=== PATIENT | male | born 1990 | race Caucasian/White ===

== ENCOUNTER 2024-09-24 00:28 | Inpatient (IN) ==
[2024-09-24] MEDS: DEXAMETHASONE SOD INJ 4 MG/ML VIAL IV STA (01:16)
[2024-09-24] MEDS: HYDROmorphone INJ 1 MG/ML SYRINGE IV STA (01:17)
[2024-09-24] MEDS: KETOROLAC TROMETHAMINE 15 MG/ML VIAL IV ONE (01:17)
[2024-09-24 02:09] LABS: Basophils # (auto) 0.04 K/uL (0.00-0.20); Basophils % (auto) 0.7 %; Eosinophils # (auto) 0.15 K/uL (0.00-0.50); Eosinophils % (auto) 2.5 %; Hematocrit (blood only) 45.5 % (42.0-52.0); Hemoglobin 16.4 g/dl (14.0-18.0); Immature Granulocytes # (auto) 0.01 K/uL (0.01-0.20); Immature Granulocytes % (auto) 0.2 %; Lymphocytes # (auto) 0.86 K/uL (1.20-3.40); Lymphocytes % (auto) 14.4 %; Mean Corpuscular Volume 83.3 fL (80.0-100.0); Mean Platelet Volume 10.4 fL (9.4-12.4); Monocytes # (auto) 0.38 K/uL (0.11-0.59); Monocytes % (auto) 6.4 %; Neutrophils # (auto) 4.54 K/uL (1.40-6.50); Neutrophils % (auto) 75.8 %; Platelet Count 166 K/uL (130-400); RDW Coefficient of Variation 11.8 % (11.5-14.5); RDW Standard Deviation 35.4 fL (36.4-46.3); Red Blood Count 5.46 M/uL (4.70-6.10); White Blood Count 5.98 K/ul (4.8-10.8)
[2024-09-24 02:20] LABS: Appearance Urine Clear (Clear); Bilirubin Urine Negative (Negative); Blood Urine Negative (Negative); Color Urine Yellow; Glucose Urine UA Negative (Negative); Ketones Urine Negative (Negative); Leukocyte Esterase Urine Negative (Negative); Nitrite Urine Negative (Negative); Protein Urine Negative (Negative); Specific Gravity Urine 1.014 (1.000-1.030); Urobilinogen Urine Negative (Negative)
[2024-09-24 02:24] LABS: BUN Creatinine Ratio 14.3 (10-20); Calcium 8.9 mg/dl (8.6-10.3); Creatinine Clr Calc Pharmacy 144.3 ml/min; Potassium 4.2 mmol/L (3.5-5.1)
--- NOTE | 2024-09-24 02:54 | Emergency Department Note ---
Impression & Plan Back pain, Acute urinary retention ED Provider Note CHIEF COMPLAINT: Back pain HPI: Patient is a 34-year-old male presenting with complaint of back pain. Patient states his symptoms flared up worse over the past 24 hours time but have been slowly progressing over the last 1 to 2 weeks. Patient states he has had a history of microdiscectomy at [facility] by Dr. Renteira in 2019. Patient states he follows regularly with neurosurgery team and recently had a MRI performed at [address] in [place] showing L4-L5 disc protrusion. Patient scheduled next week for epidural steroid injection. Patient today having worsening pain that was not controlled by [id number] medications. Patient states he started to have urinary symptoms. Patient's pain is in the left lower back and radiates down his left leg. PAST MEDICAL HISTORY: See Below PAST SURGICAL HISTORY: See Below SOCIAL HISTORY: See Below HOME MEDICATIONS: See Below ALLERGIES: See Below VITALS: See Below PHYSICAL EXAMINATION: GENERAL: non-toxic. EYE EXAM: Normal conjunctiva. OROPHARYNX: Moist mucus membranes. Grossly normal dentition. NECK: Supple, LUNGS: Clear to auscultation. Normal chest wall mechanics. HEART: NSR ABDOMEN: Abdomen soft, non-tender, normo-active bowel sounds, no masses, no rebound or guarding BACK: Tenderness left lateral lower back region sciatic region. Patient intact sensation lower extremities bilaterally, patient has pain with lifting of his left leg in his lower back region but is able to hold his leg up off the stretcher. Patient has 2+ left dorsal pedis pulse. SKIN: No rashes and no bruising. UPPER EXTREMITIES: Upper extremities are grossly normal LOWER EXTREMITIES: Grossly normal, no edema. NEURO EXAM: A&O x3,, normal speech, moves all 4 extremities PSYCH: Cooperative MEDICAL DECISION MAKING: History obtained from: Patient ER Course: Patient is a 34-year-old male presenting with complaint of back pain. Patient has history of herniated disks on MRI 1 month prior. Patient states he has become more painful over the past month but in the past 24 hours time he had significant pain not controlled by [id number] medications. Patient states he called his medical providers who they called and anti-inflammatories tramadol and prednisone. Patient tried to take these today without relief in symptoms. Patient noticed that he was having trouble urinating. Patient denies any burning with urination. Patient denies any abdominal pain. Patient points to the left lower lateral back not midline for where his pain is located that radiates down his left leg. Patient has intact sensation in the left lower extremity and 2+ dorsal pedis pulse. Patient on postvoid residual originally was found to have over 700 cc. Patient again tried to urinate later on in ER course and put out 500 cc but still had 500 cc present on bladder scan. Patient was ordered a Kinsey catheter and now after the second attempt is willing to have it placed. Patient ordered a stat MRI to rule out cauda equina. Patient currently pending MRI report. Patient's case signed out due to the end of my shift. Labs (independently interpreted) are significant for: No electrolyte abnormalities Medications given: Toradol, Dilaudid, Decadron Chronic conditions affecting care: Disc herniation L4-L5 Triage Nursing notes reviewed and agree them. 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 H/O laminectomy History of ear surgery LEFT EAR PATCH (REPAIRED HOLE IN EAR) History of myringotomy X 2 History of tonsillectomy and adenoidectomy [place] teeth removed Family History Other No family history of adverse response to anesthesia No significant family history Social History Smoking Status: Never smoker Second Hand Exposure: No; Do You Dip or Chew Tobacco: No; Hx Alcohol Use: Yes Alcohol type: beer Preferred Language: Macanese Chief Diversity Officer Required: No Beliefs That Will Affect Care: None marital status: Current Living Situation: Spouse and Significant Other Feels Safe at Home: Yes Assistive Devices: None Allergies Allergies Allergy/AdvReac Type Severity Reaction Status Date / Time No Known Allergies Allergy Verified 12/05/22 10:43 Home Meds Home Medications Medication Instructions Recorded Confirmed bupropion HCl 150 mg tablet,12 hr 150 mg PO BID 11/08/22 12/05/22 sustained-release (Wellbutrin SR) apple cider vinegar 600 mg capsule 600 mg PO QAM 11/24/22 12/05/22 Results & Data (ED) Vital Signs Vital Signs - 24 hr 09/24/24 00:31 09/24/24 00:43 09/24/24 00:59 Temperature 36.5 C Temperature Source Temporal Artery Scan Pulse Rate 98 H 98 H Pulse Rate [Right Finger] 85 Respiratory Rate 22 12 Respiratory Effort / Characteristics Non-Labored Spontaneous Respiratory Depth Normal Blood Pressure 167/112 H Blood Pressure [Right Arm] 142/91 H Blood Pressure Mean 130 Blood Pressure Mean [Right Arm] 108 Pulse Oximetry 98 96 Oxygen Delivery Method Room Air Sepsis Recent Fever Within 48 Hours No Sepsis New/Unexplained Change in Mental Status N/A Sepsis Action Taken by Nursing No Action Required 09/24/24 02:30 Temperature Temperature Source Pulse Rate Pulse Rate [Right Finger] 76 Respiratory Rate 13 Respiratory Effort / Characteristics Respiratory Depth Blood Pressure Blood Pressure [Right Arm] Blood Pressure Mean Blood Pressure Mean [Right Arm] Pulse Oximetry 96 Oxygen Delivery Method Sepsis Recent Fever Within 48 Hours Sepsis New/Unexplained Change in Mental Status Sepsis Action Taken by Nursing Laboratory Data 09/24/24 01:54 09/24/24 01:54 Lab Results 09/24/24 09/24/24 Range/Units 01:08 01:54 WBC 5.98 (4.8-10.8) K/ul RBC 5.46 (4.70-6.10) M/uL Hgb 16.4 (14.0-18.0) g/dl Hct 45.5 (42.0-52.0) % MCV 83.3 (80.0-100.0) fL MCH 30.0 (25.0-34.0) pg MCHC 36.0 (32.0-36.0) g/dL RDW Std Deviation 35.4 L (36.4-46.3) fL RDW Coeff of Jesse 11.8 (11.5-14.5) % Plt Count 166 (130-400) K/uL MPV 10.4 (9.4-12.4) fL Immature Gran % (Auto) 0.2 % Neut % (Auto) 75.8 % Lymph % (Auto) 14.4 % Lander % (Auto) 6.4 % Eos % (Auto) 2.5 % Baso % (Auto) 0.7 % Neut # (Auto) 4.54 (1.40-6.50) K/uL Lymph # (Auto) 0.86 L (1.20-3.40) K/uL Lander # (Auto) 0.38 (0.11-0.59) K/uL Eos # (Auto) 0.15 (0.00-0.50) K/uL Baso # (Auto) 0.04 (0.00-0.20) K/uL Immature Gran # (Auto) 0.01 (0.01-0.20) K/uL Sodium 135 L (136-145) mmol/L Potassium 4.2 (3.5-5.1) mmol/L Chloride 106 (98-107) mmol/L Carbon Dioxide 23 (21-32) mmol/L Anion Gap 6 (3-11) BUN 14 (6-23) mg/dl Creatinine 0.98 (0.6-1.4) mg/dl Est Cr Clr Drug Dosing 144.3 ml/min eGFR 103.77 BUN/Creatinine Ratio 14.3 (10-20) Glucose 133 H (70-99(Fasting)) mg/dl Calcium 8.9 (8.6-10.3) mg/dl Urine Color Yellow Urine Appearance Clear (Clear) Urine pH 7.0 (4.5-7.5) Ur Specific C[place] 1.014 (1.000-1.030) Urine Protein Negative (Negative) Urine Glucose (UA) Negative (Negative) Urine Ketones Negative (Negative) Urine Blood Negative (Negative) Urine Nitrite Negative (Negative) Urine Bilirubin Negative (Negative) Urine Urobilinogen Negative (Negative) Ur Leukocyte Esterase Negative (Negative) Administered Medications Discontinued Medications Dexamethasone (Dexamethasone Sod Inj 4 Mg/Ml Vial) 8 mg IV NOW STA Stop: 09/24/24 00:59 Last Admin: 09/24/24 01:16 Dose: 8 mg Documented By: SHALOM Hydromorphone HCl (Hydromorphone Inj 1 Mg/Ml Syringe) 1 mg IV NOW STA Stop: 09/24/24 00:59 Last Admin: 09/24/24 01:17 Dose: 1 mg Documented By: RAULITOK Ketorolac Tromethamine (Ketorolac Tromethamine 15 Mg/Ml Vial) 10 mg IV NOW ONE Stop: 09/24/24 00:59 Last Admin: 09/24/24 01:17 Dose: 10 mg Documented By: RAULITOK Discharge Plan Visit Data Chief Complaint: Back Injury/Pain Stated Complaint: SOB, UNABLE TO URINATE, PAIN ED Provider: Radha Mcclelland Discharge Problem: Back pain, Acute urinary retention Forms Stand Alone Forms: [facility] Prescriptions Prescriptions: No Action bupropion HCl [Wellbutrin SR] 150 mg tablet sustained-release 12 hr 150 mg PO BID apple cider vinegar 600 mg Capsule 600 mg PO QAM Referrals Referrals: Bre Ospina MD [Primary Care Provider] -
--- NOTE | 2024-09-24 03:35 | Magnetic Resonance Report ---
EXAM: MR lumbar spine wo con CLINICAL HISTORY: Low back pain radiating down left leg. No recent injury. Previous microdiscectomy 4 years ago. TECHNIQUE: Different pulse sequences were performed in different planes for the lumbar spine without contrast. Images were sent through PACs for diagnostic interpretation. COMPARISON: None. FINDINGS: Preserved physiological lumbar lordosis. Lumbarization of S1 vertebral body. There is degenerative retrolisthesis at the L5-S1 level measuring 6.3 mm. L4-L5 and L5-S1 intervertebral discs are degenerated and are denoted by low signal intensity on T2 WI. Modic I and II marrow changes are seen, with no other remarkable marrow changes. Left fenestration laminotomy is seen opposite the L5-S1 intervertebral disc. Maintained vertebral heights with intact vertebral bodies and neural arches. Level by Level analysis: T12-L1: There is no focal disc pathology, spinal canal stenosis, or neural foraminal stenosis. L1-L2: There is no focal disc pathology, spinal canal stenosis, or neural foraminal stenosis. L2-L3: There is no focal disc pathology, spinal canal stenosis, or neural foraminal stenosis. L3-L4: There is no focal disc pathology, spinal canal stenosis, or neural foraminal stenosis. L4-L5: There is A 2.8 mm annular bulge and a 5.7 mm central and right central and subarticular herniation indenting the thecal ac, compromising the subarticular recesses more on the right side. There is Mild spinal canal stenosis with impingement of the emerging nerve roots. Buckled ligamenta flava and arthropathic facet joints augment effects. An underlying annular fissure is seen. L5-S1: 2.8 mm annular bulge and 21 x 14 x 11 mm Broad-based central and left central and subarticular extrusion with caudal migration indenting the thecal sac, compromising the subarticular recesses more on the left side. There is moderate spinal canal stenosis and mild bilateral neural foraminal stenosis with impingement of the emerging nerve roots. Low signal material is seen entrapping The left S1 nerve root, suggesting postoperative scar tissue. Degenerative retrolisthesis buckled right ligamentum flavum, and arthropathic facet joints augment effects. The lower dorsal spinal cord, conus medullaris, and cauda equina nerve roots are unremarkable. Paravertebral soft tissue is unremarkable. No developmental canal stenosis. IMPRESSION: 1. Lumbarization of S1 vertebral body. 2. There is degenerative retrolisthesis at the L5-S1 level measuring 6.3 mm. 3. L4-L5 and L5-S1 intervertebral discs are degenerated. 4. Modic I and II marrow changes. 5. Left fenestration laminotomy is seen opposite the L5-S1 intervertebral disc. 6. L4-L5: There is A 2.8 mm annular bulge and a 5.7 mm central and right central and subarticular herniation indenting the thecal ac, compromising the subarticular recesses more on the right side. There is Mild spinal canal stenosis with impingement of the emerging nerve roots. Buckled ligamenta flava and arthropathic facet joints augment effects. An underlying annular fissure is seen. 7. L5-S1: 2.8 mm annular bulge and 21 x 14 x 11 mm Broad-based central and left central and subarticular extrusion with caudal migration indenting the thecal sac, compromising the subarticular recesses more on the left side. There is moderate spinal canal stenosis and mild bilateral neural foraminal stenosis with impingement of the emerging nerve roots. Low signal material is seen entrapping The left S1 nerve root, suggesting postoperative scar tissue. Degenerative retrolisthesis buckled right ligamentum flavum, and arthropathic facet joints augment effects. Contrast-enhanced MRI study is recommended. 8. The reported findings explain the current clinical status. Electronically signed by Ruben Khanna 09-24-2024 03:35 AM
--- NOTE | 2024-09-24 04:14 | Emergency Department Note ---
ED Visit Note Patient signed out to me at change of shift from Dr. Coombs. Awaiting MRI of the lumbar spine. [id number]: Discussed the case with Dr. Floyd, neuro spine at [facility]. He states no indication for cauda equina or emergent intervention. Does not feel the patient needs urgently transferred and just needs further pain control. He states once discharged the patient can contact their office to see if sooner appointments are available for his scheduled cortisone injection. [id number]: Patient and family updated on discussion with [place] teacher specialist. 0452: D[facility] with [facility] Tyson[facility], for additional evaluation and management. .
[2024-09-24] MEDS: LIDOCAINE 5% 1 PATCH TD STA (04:36)
[2024-09-24] MEDS: ACETAMINOPHEN 1,000 MG/100 ML VIAL IV STA (04:38)
--- NOTE | 2024-09-24 05:32 | History & Physical Report ---
Date of Service September 24, 2024 Assessment & Plan (1) Acute urinary retention: (2) Back pain: (3) History of microdiscectomy: (4) H/O laminectomy: Plan The patient is a 34-year-old male with prior medical history that of chronic low back pain, and history of microdiscectomy surgery.The patient presents to the emergency department with history of significant back pain, having undergone microdiscectomy at [facility] by Dr. Renteria in 2019. He reports that over the past 3 to 4 weeks she has had a gradually increasing level of worsening pain, but in particular over the past 24 hours has worsened considerably to the point that he cannot move off of the bed in ED without severe pain. He reports that this episode of pain began while he was sitting at a desk working on a computer, developed severe sharp pain that radiated down his left leg, and while in the ED, started to have urinary retention symptoms, requiring placement of Kinsey catheter. He reports that he initially was able to urinate 500 cc, bladder scanning revealed about 1000 cc remaining. He did have a MRI performed at 611 in [place] which showed L4-5 disc protrusion. He has an epidural steroid injection scheduled next week at [facility]. Discussion with Dr. Renteria and ED physicians after repeating MRI this evening, revealed that there was no urgency for surgery for relief of potential cauda equina or other compressive syndrome. 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 at bedtime. He reports that gabapentin has made him dysfunctional in the past Narcan IV for oversedation/respiratory depression Lidoderm patch Patient reports gabapentin makes him feel spacey and cannot work Zofran 4 mg IV every 6 hours as needed Acetaminophen 650 mg p.o. every 6 hours as needed for mild pain or fever Consult orthopedic spine surgery. He has been seen by Dr. Ramos in the past #Acute urinary retention- Continue Kinsey catheter for now Consult urology SCD with heparin subcu History of Present Illness Chief Complaint: The patient presents to the emergency department with history of significant back pain, having undergone microdiscectomy at [facility] by Dr. Renetria in 2019. He reports that over the past 3 to 4 weeks she has had a gradually increasing level of worsening pain, but in particular over the past 24 hours has worsened considerably to the point that he cannot move off of the bed in ED without severe pain. He reports that this episode of pain began while he was sitting at a desk working on a computer, developed severe sharp pain that radiated down his left leg, and while in the ED, started to have urinary retention symptoms, requiring placement of Kinsey catheter. He reports that he initially was able to urinate 500 cc, bladder scanning revealed about 1000 cc remaining. He did have a MRI performed at 611 in [place] which showed L4-5 disc protrusion. He has an epidural steroid injection scheduled next week at [facility]. Discussion with Dr. Renteria and ED physicians after repeating MRI this evening, revealed that there was no urgency for surgery for relief of potential cauda equina or other compressive syndrome Primary Care Provider: Bre Ospina MD The patient is a 34-year-old male with prior medical history that of chronic low back pain, and history of microdiscectomy surgery.The patient presents to the emergency department with history of significant back pain, having undergone microdiscectomy at [facility] by Dr. Renteria in 2019. He reports that over the past 3 to 4 weeks she has had a gradually increasing level of worsening pain, but in particular over the past 24 hours has worsened considerably to the point that he cannot move off of the bed in ED without severe pain. He reports that this episode of pain began while he was sitting at a desk working on a computer, developed severe sharp pain that radiated down his left leg, and while in the ED, started to have urinary retention symptoms, requiring placement of Kinsey catheter. He reports that he initially was able to urinate 500 cc, bladder scanning revealed about 1000 cc remaining. He did have a MRI performed at [address] in [place] which showed L4-5 disc protrusion. He has an epidural steroid injection scheduled next week at [facility]. Discussion with Dr. Renteria and ED physicians after repeating MRI this evening, revealed that there was no urgency for surgery for relief of potential cauda equina or other compressive syndrome Allergies Allergy/AdvReac Type Severity Reaction Status Date / Time No Known Allergies Allergy Verified 12/05/22 10:43 Home Medications Medication Instructions Recorded Confirmed Type methylprednisolone 4 mg tablets in 40 mg PO Q4-5H PRN Pain, Moderate 09/24/24 09/24/24 History a dose pack tramadol 50 mg PO Q4-5H PRN Pain, Moderate 09/24/24 09/24/24 History Past Med/Surg History Problem List (Updated 09/24/24 @ 03:15 by Victorino Coombs DO) History of microdiscectomy H/O laminectomy Acute urinary retention (Acute) Back pain (Acute) Encounter for pre-operative examination Varicocele Penoscrotal webbing Medical History Depression Heart burn Occasional History of COVID-19 08/2021 > RESOLVED Varicocele Surgical History Gynecomastia, male REPAIRED H/O laminectomy History of ear surgery LEFT EAR PATCH (REPAIRED HOLE IN EAR) History of myringotomy X 2 History of tonsillectomy and adenoidectomy [place] teeth removed Family History Other No family history of adverse response to anesthesia No significant family history Social History Smoking Status: Never smoker Second Hand Exposure: No; Do You Dip or Chew Tobacco: No; Hx Alcohol Use: Yes Alcohol type: beer Preferred Language: Icelandic Auditor Appraiser Required: No Beliefs That Will Affect Care: None marital status: Current Living Situation: Spouse and Significant Other Feels Safe at Home: Yes Assistive Devices: None Review of Systems Review of Systems: The patient denies chest pain, palpitations, shortness of breath, dyspnea on exertion, cough, lower extremity swelling, sore throat, fevers, chills, sweats, weight change, fatigue, nausea, vomiting, diarrhea , constipation, abdominal pain, pelvic pain, blood in urine or stool, dysuria, urinary frequency or urgency, lightheadedness, dizziness, headache, memory loss, loss of consciousness, rash, abnormal bruising or bleeding, focal or generalized weakness, numbness or tingling in arms, generalized arthralgias or myalgias, neck pain, or night sweats. The review of systems is otherwise negative other than for that already noted above, and at least 10 systems have been reviewed. Physical Exam Physical Exam: The patient is awake, alert and oriented 3, well developed and well nourished, normocephalic and atraumatic, lying in bed and in no acute distress while lying still HEENT--PERRL, EOMI, mucous membranes and oropharynx normal Neck--supple. No JVD. No bruits. Thyroid normal, trachea midline, no adenopathy. Heart--normal S1 and S2. No murmurs, rubs or gallops. Lungs--clear bilaterally, no respiratory distress, no accessory muscle use. Abdomen--normal bowel sounds and soft. Nontender. Nondistended, no hernias or masses, no organomegaly. Extremities--no cyanosis or clubbing. No edema. There are good distal pulses b/l. Dermatologic--normal skin turgor, normal color, no abnormal lymph nodes, no rash. Neurologic--cranial nerves II through XII grossly intact. Rheumatologic--normal range of motion. Psychiatric--normal affect. Results & Data Results & Data Vital Signs (Past 12 Hours) Vital Signs Temp Pulse Pulse Resp BP BP Pulse Ox 09/24/24 04:28 79 12 139/79 93 09/24/24 04:27 89 09/24/24 02:30 76 13 96 09/24/24 00:59 98 H 09/24/24 00:43 85 12 142/91 H 96 09/24/24 00:31 36.5 C 98 H 22 167/112 H 98 O2 Del Method 09/24/24 04:28 09/24/24 04:27 09/24/24 02:30 09/24/24 00:59 09/24/24 00:43 09/24/24 00:31 Room Air Laboratory Results Laboratory Results WBC 5.98 K/ul (4.8-10.8) 09/24/24 01:54 RBC 5.46 M/uL (4.70-6.10) 09/24/24 01:54 Hgb 16.4 g/dl (14.0-18.0) 09/24/24 01:54 Hct 45.5 % (42.0-52.0) 09/24/24 01:54 MCV 83.3 fL (80.0-100.0) 09/24/24 01:54 MCH 30.0 pg (25.0-34.0) 09/24/24 01:54 MCHC 36.0 g/dL (32.0-36.0) 09/24/24 01:54 RDW Std Deviation 35.4 fL (36.4-46.3) L 09/24/24 01:54 RDW Coeff of Jesse 11.8 % (11.5-14.5) 09/24/24 01:54 Plt Count 166 K/uL (130-400) 09/24/24 01:54 MPV 10.4 fL (9.4-12.4) 09/24/24 01:54 Immature Gran % (Auto) 0.2 % 09/24/24 01:54 Neut % (Auto) 75.8 % 09/24/24 01:54 Lymph % (Auto) 14.4 % 09/24/24 01:54 Barron % (Auto) 6.4 % 09/24/24 01:54 Eos % (Auto) 2.5 % 09/24/24 01:54 Baso % (Auto) 0.7 % 09/24/24 01:54 Neut # (Auto) 4.54 K/uL (1.40-6.50) 09/24/24 01:54 Lymph # (Auto) 0.86 K/uL (1.20-3.40) L 09/24/24 01:54 Barron # (Auto) 0.38 K/uL (0.11-0.59) 09/24/24 01:54 Eos # (Auto) 0.15 K/uL (0.00-0.50) 09/24/24 01:54 Baso # (Auto) 0.04 K/uL (0.00-0.20) 09/24/24 01:54 Immature Gran # (Auto) 0.01 K/uL (0.01-0.20) 09/24/24 01:54 Sodium 135 mmol/L (136-145) L 09/24/24 01:54 Potassium 4.2 mmol/L (3.5-5.1) 09/24/24 01:54 Chloride 106 mmol/L (98-107) 09/24/24 01:54 Carbon Dioxide 23 mmol/L (21-32) 09/24/24 01:54 Anion Gap 6 (3-11) 09/24/24 01:54 BUN 14 mg/dl (6-23) 09/24/24 01:54 Creatinine 0.98 mg/dl (0.6-1.4) 09/24/24 01:54 Est Cr Clr Drug Dosing 144.3 ml/min 09/24/24 01:54 eGFR 103.77 09/24/24 01:54 BUN/Creatinine Ratio 14.3 (10-20) 09/24/24 01:54 Glucose 133 mg/dl (70-99(Fasting)) H 09/24/24 01:54 Calcium 8.9 mg/dl (8.6-10.3) 09/24/24 01:54 Urine Color Yellow 09/24/24 01:08 Urine Appearance Clear (Clear) 09/24/24 01:08 Urine pH 7.0 (4.5-7.5) 09/24/24 01:08 Ur Specific [place]wood 1.014 (1.000-1.030) 09/24/24 01:08 Urine Protein Negative (Negative) 09/24/24 01:08 Urine Glucose (UA) Negative (Negative) 09/24/24 01:08 Urine Ketones Negative (Negative) 09/24/24 01:08 Urine Blood Negative (Negative) 09/24/24 01:08 Urine Nitrite Negative (Negative) 09/24/24 01:08 Urine Bilirubin Negative (Negative) 09/24/24 01:08 Urine Urobilinogen Negative (Negative) 09/24/24 01:08 Ur Leukocyte Esterase Negative (Negative) 09/24/24 01:08 Impressions Lumbar Spine MRI 09/24/24 01:23 EXAM: MR lumbar spine wo con CLINICAL HISTORY: Low back pain radiating down left leg. No recent injury. Previous microdiscectomy 4 years ago. TECHNIQUE: Different pulse sequences were performed in different planes for the lumbar spine without contrast. Images were sent through PACs for diagnostic interpretation. COMPARISON: None. FINDINGS: Preserved physiological lumbar lordosis. Lumbarization of S1 vertebral body. There is degenerative retrolisthesis at the L5-S1 level measuring 6.3 mm. L4-L5 and L5-S1 intervertebral discs are degenerated and are denoted by low signal intensity on T2 WI. Modic I and II marrow changes are seen, with no other remarkable marrow changes. Left fenestration laminotomy is seen opposite the L5-S1 intervertebral disc. Maintained vertebral heights with intact vertebral bodies and neural arches. Level by Level analysis: T12-L1: There is no focal disc pathology, spinal canal stenosis, or neural foraminal stenosis. L1-L2: There is no focal disc pathology, spinal canal stenosis, or neural foraminal stenosis. L2-L3: There is no focal disc pathology, spinal canal stenosis, or neural foraminal stenosis. L3-L4: There is no focal disc pathology, spinal canal stenosis, or neural foraminal stenosis. L4-L5: There is A 2.8 mm annular bulge and a 5.7 mm central and right central and subarticular herniation indenting the thecal ac, compromising the subarticular recesses more on the right side. There is Mild spinal canal stenosis with impingement of the emerging nerve roots. Buckled ligamenta flava and arthropathic facet joints augment effects. An underlying annular fissure is seen. L5-S1: 2.8 mm annular bulge and 21 x 14 x 11 mm Broad-based central and left central and subarticular extrusion with caudal migration indenting the thecal sac, compromising the subarticular recesses more on the left side. There is moderate spinal canal stenosis and mild bilateral neural foraminal stenosis with impingement of the emerging nerve roots. Low signal material is seen entrapping The left S1 nerve root, suggesting postoperative scar tissue. Degenerative retrolisthesis buckled right ligamentum flavum, and arthropathic facet joints augment effects. The lower dorsal spinal cord, conus medullaris, and cauda equina nerve roots are unremarkable. Paravertebral soft tissue is unremarkable. No developmental canal stenosis. IMPRESSION: 1. Lumbarization of S1 vertebral body. 2. There is degenerative retrolisthesis at the L5-S1 level measuring 6.3 mm. 3. L4-L5 and L5-S1 intervertebral discs are degenerated. 4. Modic I and II marrow changes. 5. Left fenestration laminotomy is seen opposite the L5-S1 intervertebral disc. 6. L4-L5: There is A 2.8 mm annular bulge and a 5.7 mm central and right central and subarticular herniation indenting the thecal ac, compromising the subarticular recesses more on the right side. There is Mild spinal canal stenosis with impingement of the emerging nerve roots. Buckled ligamenta flava and arthropathic facet joints augment effects. An underlying annular fissure is seen. 7. L5-S1: 2.8 mm annular bulge and 21 x 14 x 11 mm Broad-based central and left central and subarticular extrusion with caudal migration indenting the thecal sac, compromising the subarticular recesses more on the left side. There is moderate spinal canal stenosis and mild bilateral neural foraminal stenosis with impingement of the emerging nerve roots. Low signal material is seen entrapping The left S1 nerve root, suggesting postoperative scar tissue. Degenerative retrolisthesis buckled right ligamentum flavum, and arthropathic facet joints augment effects. Contrast-enhanced MRI study is recommended. 8. The reported findings explain the current clinical status. Electronically signed by Ruben Khanna 09-24-2024 03:35 AM Code Status & VTE Plan Code Status Full code VTE Prophylaxis Plan VTE Prophylaxis will be ordered: Yes PG Care Time/CCT Total # of Minutes Spent Total Time Spent with Patient: Total time spent is greater than 50% in coordination of care (as documented) at patient's floor/unit and/or counseling patient: Coding Level of Care Code 29622 INT INP/OBS CARE 3/75MIN Diagnoses Acute urinary retention R33.8 Back pain M54.9 History of microdiscectomy Z98.890 H/O laminectomy Z98.890
[2024-09-24] MEDS: diphenhydrAMINE 50 MG/ML VIAL IV PRN (05:40)
[2024-09-24] MEDS ORDERED: NALOXONE HCL 0.4 MG/1 ML VIAL/CARP IV PRN ×2 (05:48→15:17)
[2024-09-24] MEDS: HYDROmorphone INJ 1 MG/ML SYRINGE IV PRN (05:58)
[2024-09-24] MEDS ORDERED: ONDANSETRON INJ 2 MG/ML 2 ML VIAL IV PRN ×3 (06:50→15:17)
--- OUTSIDE RECORDS SUMMARY | 2024-09-24 07:01 | External Medical Summary | Continuity of Care Document ---
Author Name Unknown Organization [place] [address] [address] [place] [id number] Care Team Providers Care Cement Sack Breaker Name Role Phone Bre Ospina Primary Care Physician [phone] [id number] Date(s): 08/09/24 - 08/09/24 [place] [address] [address] [facility] Neurosurgery [address], [address], [address] [place] [address] [phone] Encounter Diagnosis Lumbar radiculopathy(Discharge Diagnosis) - 08/09/24 Discharge Disposition: Home or Self Care Attending Physician: NOE Sanabria, Tiana Randhawa Referring Physician: MD Bhavesh, Bre Mueller Allergies, Adverse Reactions, Alerts No Known Allergies Medications buPROPion 150 mg/24 hours (XL) oral tablet, extended release Start: 01/18/23 1:36:00 PM EDT, 3 tab, PO, q24h, Disp# 270 tab, Refills: 1, Pharmacy: [id number] Start Date: 01/18/23 Status: Ordered escitalopram 10 mg oral tablet Start: 03/13/23 11:07:00 AM EDT, 1 tab, PO, Daily, Disp# 30 tab, Refills: 6, Pharmacy: [facility] Start Date: 03/13/23 Status: Ordered Midol Extended Relief Start: 08/09/24 9:15:00 AM EST Start Date: 08/09/24 Status: Ordered Problem List Condition Confirmation Course Effective Dates Status H ealth Status Informant ADD (attention deficit disorder) Confirmed Active Chronic depression Confirmed Active Chronic insomnia Confirmed Active Polycythemia Confirmed Active Chronic fatigue Confirmed Active Annual physical exam Confirmed Active Herniation of intervertebral disc of lumbar region Confirmed Active Diagnosis Diagnosis Type Effective Dates Health Status Clinical Service Informant Lumbar radiculopathy Discharge Diagnosis 08/09/24 Procedures Procedure Date Related Diagnosis Body Site Status History of tonsillectomy Completed Microdiscectomy Completed Results Radiology Reports * Exam Date Time Procedure Performing Provider Status 08/09/24 9:48 AM XR Spine Lumbosacral 4+ Views Sydnee Kaufman; Final Notes: (XR Spine Lumbosacral 4+ Views) Reason For Exam: r/o instability XR Spine Lumbosacral 4+ Views EXAMINATION: XR Spine Lumbosacral 4+ Views CLINICAL HISTORY: M54.16: Radiculopathy, lumbar region; M54.16: Radiculopathy, lumbar region; Upright AP, Lateral, Flexion, Extension r/o instability COMPARISON: Outside radiographs dated 08/05/2024 FINDINGS: AP, lateral, flexion and extension lateral views of the lumbosacral spine. There is minimal dextroconvex curvature. There is transitional lumbosacral anatomy with 6 nonrib-bearing lumbar-type vertebrae. There is mild disc space narrowing and small endplate osteophytes at L4-5 and L5-transitional L6. Vertebral body heights are maintained. There is no dynamic instability on flexion and extension lateral views. IMPRESSION: 1. Mild discovertebral degeneration at L4-5 and L5-transitional L6. 2. No dynamic instability on flexion and extension lateral views. Workstation ID: [id number] Final Dictated by:MD Hackett Joong Mo Dictated DT/TM:08/09/2024 10:02 Signed by:MD Hackett Joong Mo Signed (Electronic Signature):08/09/2024 10:01 Social History Social History Type Response Smoking Status Never smoked cigaret марина Sex Male Sex Representation Male (finding) Patient Care team information Care Team Personnel Name: NOE Espino Ashley Position: Physician Mobile Developer - Neurosurgery Member Role: Lifetime Relationship Address: [address] [facility] [address] [place] [address] [place] Name: MD Bhavesh, Bre Mueller Position: Physician - Family Med Member Role: Primary Care Provider Address: [address] [place] [address] [address] [place] [address] Name: Kenisha Sylvester Position: HIS Supervisor_P Member Role: HIS Lifetime Care Team Related Persons Name: SRINATH ORDAZ Name: OSCAR BRITT Name: OSCAR BRITT
--- OUTSIDE RECORDS SUMMARY | 2024-09-24 07:01 | External Medical Summary | Continuity of Care Document ---
Author Name Unknown Organization [place] [address] [address] [place] [id number] Care Team Providers Care Distribution Transformer Assembler Name Role Phone OspinaBre steven Primary Care Physician [phone] [id number] Date(s): 09/13/24 - 09/13/24 [place] [address] [address] [facility] Neurosurgery [address], [address] [place] [address] [phone] Encounter Diagnosis Lumbar disc herniation(Discharge Diagnosis) - 09/13/24 Discharge Disposition: Home or Self Care Attending Physician: MD Everett, Thom Del Toro Allergies, Adverse Reactions, Alerts No Known Allergies Medications buPROPion 150 mg/24 hours (XL) oral tablet, extended release Start: 01/18/23 1:36:00 PM EDT, 3 tab, PO, q24h, Disp# 270 tab, Refills: 1, Pharmacy: [id number] Start Date: 01/18/23 Status: Ordered escitalopram 10 mg oral tablet Start: 03/13/23 11:07:00 AM EDT, 1 tab, PO, Daily, Disp# 30 tab, Refills: 6, Pharmacy: [facility] Start Date: 03/13/23 Status: Ordered Medrol Dosepak 4 mg oral tablet Start: 09/03/24 9:53:00 AM EST, See Instructions, Disp# 21 tab, Take as directed on package labeling for 6 days., Pharmacy: [id number] Start Date: 09/03/24 Stop Date: 09/09/24 Status: Ordered Midol Extended Relief Start: 08/09/24 [...] Dates Health Status Clinical Service Informant Lumbar disc herniation Discharge Diagnosis 09/13/24 Procedures Procedure Date Related Diagnosis Body Site Status History of tonsillectomy Completed Microdiscectomy Completed Social History Social History Type Response Smoking Status Never smoked cigaret марина Sex Male Sex Representation Male (finding) Patient Care team information Care Team Personnel Name: NOE Espino, Kandace Position: Physician Television Director - Neurosurgery Member Role: Lifetime Relationship Address: [address] [facility] [address] [place] [address] Name: MD Bhavesh, Bre Mueller Position: Physician - Family Med Member Role: Primary Care Provider Address: [address] [place] [address] 1 [place] [address] Name: Kenisha Sylvester Position: HIS Supervisor_P Member Role: HIS Lifetime Care Team Related Persons Name: SRINATH ORDAZ Name: OSCAR BRITT Name: OSCAR BRITT
[2024-09-24] MEDS: dexAMETHasone 6 MG in SYRINGE 0 ML IV SCH (08:24)
[2024-09-24] MEDS: HEPARIN SOD 5,000 UNIT/0.5 ML VIAL SQ SCH (08:24)
[2024-09-24] MEDS: buPROPion SR 150 MG TABCR PO SCH (09:08)
--- NOTE | 2024-09-24 10:20 | Urology Consultation ---
Date of Consultation September 24, 2024 Assessment & Plan (1) Acute urinary retention: 34-year-old male admitted for acute back pain and found to have urinary retention. Patient afebrile and hemodynamically stable Labs reviewedcreatinine 0.98, WBC 5.98, hemoglobin 16.4 Urinalysis unremarkable Urinary retention secondary to back pain/pathology, medication effect Kinsey catheter currently in place for management of urinary retention Recommend maintain Kinsey catheter until pain and functional status improves No additional intervention required Spine ortho consulted Continue with medical management/pain management per hospital medicine will sign off, please contact our service with any additional questions or concerns History of Present Illness Attending Physician: Jose Tyson MD History of Present Illness This is a 34-year-old male with past medical history of left varicocele status post micro surgical varicocelectomy, back pain, and history of microdiscectomy at [facility] in 2019 who presented to the ED on 09/24/2024 for evaluation of worsening back pain back pain, which has progressed over the last 1 to 2 weeks, but acutely worsened in the past 24 hours. Per admitting notes, patient had recent MRI showing L4-L5 disc protrusion. He is scheduled next week for an epidural steroid injection. On arrival, he was afebrile, hypertensive. Labs showed WBC 5.98, hemoglobin 16.4, sodium 135, creatinine 0.98. Urinalysis unremarkable. Patient reported difficulty voiding and was found to have postvoid residual over 700 mL. He voided again, but PVR remained elevated. Kinsey catheter was placed for urinary retention. ED course: Dexamethasone, hydromorphone, and ketorolac. He was admitted to the hospital medicine team for evaluation and pain management. Urology is consulted for urinary retention. Patient seen and examined in the emergency department. He reports that difficulty voiding began with acute back pain. He reports it was difficult to empty his bladder due to pain. No dysuria or hematuria. No urinary incontinence. No fever or chills. Allergies Allergy/AdvReac Type Severity Reaction Status Date / Time No Known Allergies Allergy Verified 12/05/22 10:43 Home Medications Medication Instructions Recorded Confirmed Type methylprednisolone 4 mg tablets in 40 mg PO 2XD PRN Pain, Moderate 09/24/24 09/24/24 History a dose pack tramadol 50 mg PO Q4-5H PRN Pain, Moderate 09/24/24 09/24/24 History Patient History Medical History Varicocele Depression History of COVID-19 08/2021 > RESOLVED Heart burn Occasional Surgical History Gynecomastia, male REPAIRED [place] teeth removed History of tonsillectomy and adenoidectomy History of ear surgery LEFT EAR PATCH (REPAIRED HOLE IN EAR) History of myringotomy X 2 Family History Other No family history of adverse response to anesthesia No significant family history Social History Smoking Status: Never smoker Second Hand Exposure: No; Do You Dip or Chew Tobacco: No; Hx Alcohol Use: Yes Alcohol type: beer Preferred 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 Beliefs That Will Affect Care: None marital status: Current Living Situation: Spouse and Significant Other Feels Safe at Home: Yes Assistive Devices: None Review of Systems Review of Systems: All systems reviewed & are unremarkable except as noted in HPI & below Physical Exam Constitutional: well developed and well nourished; no acute distress Respiratory: no respiratory distress and no labored breathing Gastrointestinal (Abdomen): Inspection/Auscultation: abdomen normal to inspection Musculoskeletal: Head/Neck/Chest: normocephalic Neurologic: moves all extremities and awake Psychiatric: Orientation: alert and oriented x 3 Genitourinary: Kinsey draining yellow urine Results & Data Vital Signs (Past 12 Hours) Vital Signs Temp Pulse Pulse Resp BP BP Pulse Ox 09/24/24 09:08 93 H 17 134/96 99 09/24/24 07:13 37.1 C 85 18 143/94 H 97 09/24/24 06:54 87 09/24/24 06:05 76 15 127/71 92 09/24/24 04:28 79 12 139/79 93 09/24/24 04:27 89 09/24/24 02:30 76 13 96 09/24/24 00:59 98 H 09/24/24 00:43 85 12 142/91 H 96 09/24/24 00:31 36.5 C 98 H 22 167/112 H 98 O2 Del Method O2 Flow Rate 09/24/24 09:08 Nasal Cannula 2 09/24/24 07:13 Room Air 09/24/24 06:54 09/24/24 06:05 09/24/24 04:28 09/24/24 04:27 09/24/24 02:30 09/24/24 00:59 09/24/24 00:43 09/24/24 00:31 Room Air PG Care Time/CCT Total # of Minutes Spent Total Time Spent with Patient: Total time spent is greater than 50% in coordination of care (as documented) at patient's floor/unit and/or counseling patient: Coding Level of Care Code 07668 IN/OBS CONSULT LVL 4,60M Diagnoses Acute urinary retention R33.8
[2024-09-24] MEDS: HYDROmorphone INJ 2 MG/ML SYR/VIAL IV PRN (10:43)
--- NOTE | 2024-09-24 11:05 | History & Physical Report ---
Date of Service September 24, 2024 Assessment & Plan (1) HNP (herniated nucleus pulposus), lumbar: Plan: Imaging and treatment plan has been reviewed with Dr. Ramos as well as the patient in detail. All questions have been answered. Patient has a recurrent disc herniation at the level we are calling L4-5 on the left. This is the level of prior decompression. He was given options. We have elected to pursue posterior lumbar decompression and instrumented fusion at L4-5 secondary to his motor deficit affecting his left leg and urinary retention. Risk, benefits, pros cons and alternatives were outlined in detail. These include but are not limited to anesthesia, blindness, stroke, paralysis, chronic nerve pain, hardware failure, nonunion, adjacent level disease, DVT/PE, wound infection requiring reoperation. He would like to proceed with above-mentioned surgical intervention. This will be performed today Admission and Anticipated Discharge Date Admission Date: September 24, 2024 History of Present Illness Chief Complaint: Left flank pain and urinary retention Primary Care Provider: Bre Ospina MD This is a 34-year-old gentleman who presented to the ER last evening with complaints of severe left lower extremity pain and urinary retention. He has been dealing with this issue for about 6 months or so. He underwent physical therapy as well as chiropractic treatments and most recently have massage therapy this week. Over the past 8 weeks symptoms have been progressively worsening. Last evening he and his were out to dinner and pain became severe enough to the point that he presented to the emergency room. Over the past couple weeks he seen his established surgeon Dr. Renteria in [place] who has performed her prior L4-5 in the left microdiscectomy in 2019 with relief of his symptoms. He is referred to pain management from Dr. Renteria. He has a scheduled lumbar injection tomorrow in [place]. Denies perineum numbness. Denies right leg pain. Kinsey catheter was placed in the ER due to his urinary r etention. Urology was also consulted. Over the past several weeks he has trialed oral prednisone, tramadol, NSAIDs without relief. Allergies Allergy/AdvReac Type Severity Reaction Status Date / Time No Known Allergies Allergy Verified 12/05/22 10:43 Home Medications Medication Instructions Recorded Confirmed Type methylprednisolone 4 mg tablets in 40 mg PO 2XD PRN Pain, Moderate 09/24/24 09/24/24 History a dose pack tramadol 50 mg PO Q4-5H PRN Pain, Moderate 09/24/24 09/24/24 History Past Med/Surg History Problem List HNP (herniated nucleus pulposus), lumbar History of microdiscectomy H/O laminectomy Acute urinary retention (Acute) Back pain (Acute) Encounter for pre-operative examination Varicocele Penoscrotal webbing Medical History Varicocele Depression History of COVID-19 08/2021 > RESOLVED Heart burn Occasional Surgical History Gynecomastia, male REPAIRED [place] teeth removed History of tonsillectomy and adenoidectomy History of ear surgery LEFT EAR PATCH (REPAIRED HOLE IN EAR) History of myringotomy X 2 Family History Other No family history of adverse response to anesthesia No significant family history Social History Smoking Status: Never smoker Second Hand Exposure: No; Do You Dip or Chew Tobacco: No; Hx Alcohol Use: No Hx Substance Use: No Preferred Language: Yi 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 Ramos He is cooperative exam Alert and oriented x 3 He has a well-healed lumbar incision He has breakaway weakness throughout the left lower extremity specifically the EHL Positive tension sign on the left, negative on the right Strength is intact 5/5 right lower extremity Constitutional: WD/WN, vitals as above Eyes: normal visual martinez by confrontation ENMT: external ear and nose normal, oropharynx normal Neck: normal visual inspection Respiratory: normal respiratory effort Cardiovascular: Extremities: normal capillary refill Gastrointestinal (Abdomen): Inspection/Auscultation: abdomen normal to inspection Musculoskeletal: Spine: + pain with thoraco-lumbar ROM Extremities: extremities normal to inspection and + abnormal strength Skin: no rashes, warm and dry normal turgor Neurologic: normal touch/pain/proprioception, moves all extremities and + focal motor deficit Psychiatric: A+Ox3, euthymic affect Eye Contact: good eye contact Results & Data Vital Signs (Past 12 Hours) Vital Signs Temp Pulse Pulse Resp BP BP Pulse Ox 09/24/24 09:08 93 H 17 134/96 99 09/24/24 07:13 37.1 C 85 18 143/94 H 97 09/24/24 06:54 87 09/24/24 06:05 76 15 127/71 92 09/24/24 04:28 79 12 139/79 93 09/24/24 04:27 89 09/24/24 02:30 76 13 96 09/24/24 00:59 98 H 09/24/24 00:43 85 12 142/91 H 96 09/24/24 00:31 36.5 C 98 H 22 167/112 H 98 O2 Del Method O2 Flow Rate 09/24/24 09:08 Nasal Cannula 2 09/24/24 07:13 Room Air 09/24/24 06:54 09/24/24 06:05 09/24/24 04:28 09/24/24 04:27 09/24/24 02:30 09/24/24 00:59 09/24/24 00:43 09/24/24 00:31 Room Air Diagnostic Findings [place], [place] [phone] Magnetic Resonance Report Patient: SERGIO ORDAZ III Admit Date: 09/24/24 MR#: [id number] Address1: [address] [place] [address] Acct ID:[id number] Address2: Date: 1990 [facility] Zip: [place] [address] Age: 34 Location: ED Sex: M Room/Bed: Att Phy: Diagnosis: SOB, UNABLE TO URINATE, PAIN Dayami Phy: Bre Ospina M.D. Service Date: 09/24/24 [facility] Phy: Interpreting Phy: Ruben Khanna MDAdmit Phy: Ordering Phy: Victorino Coombs DO cc: ~ EXAM: MR lumbar spine wo con CLINICAL HISTORY: Low back pain radiating down left leg. No recent injury. Previous microdiscectomy 4 years ago. TECHNIQUE: Different pulse sequences were performed in different planes for the lumbar spine without contrast. Images were sent through PACs for diagnostic interpretation. COMPARISON: None. FINDINGS: Preserved physiological lumbar lordosis. Lumbarization of S1 vertebral body. There is degenerative retrolisthesis at the L5-S1 level measuring 6.3 mm. L4-L5 and L5-S1 intervertebral discs are degenerated and are denoted by low signal intensity on T2 WI. Modic I and II marrow changes are seen, with no other remarkable marrow changes. Left fenestration laminotomy is seen opposite the L5-S1 intervertebral disc. Maintained vertebral heights with intact vertebral bodies and neural arches. Level by Level analysis: T12-L1: There is no focal disc pathology, spinal canal stenosis, or neural foraminal stenosis. L1-L2: There is no focal disc pathology, spinal canal stenosis, or neural foraminal stenosis. L2-L3: There is no focal disc pathology, spinal canal stenosis, or neural foraminal stenosis. L3-L4: There is no focal disc pathology, spinal canal stenosis, or neural foraminal stenosis. L4-L5: There is A 2.8 mm annular bulge and a 5.7 mm central and right central and subarticular herniation indenting the thecal ac, compromising the subarticular recesses more on the right side. There is Mild spinal canal stenosis with impingement of the emerging nerve roots. Buckled ligamenta flava and arthropathic facet joints augment effects. An underlying annular fissure is seen. L5-S1: 2.8 mm annular bulge and 21 x 14 x 11 mm Broad-based central and left central and subarticular extrusion with caudal migration indenting the thecal sac, compromising the subarticular recesses more on the left side. There is moderate spinal canal stenosis and mild bilateral neural foraminal stenosis with impingement of the emerging nerve roots. Low signal material is seen entrapping The left S1 nerve root, suggesting postoperative scar tissue. Degenerative retrolisthesis buckled right ligamentum flavum, and arthropathic facet joints augment effects. The lower dorsal spinal cord, conus medullaris, and cauda equina nerve roots are unremarkable. Paravertebral soft tissue is unremarkable. No developmental canal stenosis. IMPRESSION: 1. Lumbarization of S1 vertebral body. 2. There is degenerative retrolisthesis at the L5-S1 level measuring 6.3 mm. 3. L4-L5 and L5-S1 intervertebral discs are degenerated. 4. Modic I and II marrow changes. 5. Left fenestration laminotomy is seen opposite the L5-S1 intervertebral disc. 6. L4-L5: There is A 2.8 mm annular bulge and a 5.7 mm central and right central and subarticular herniation indenting the thecal ac, compromising the subarticular recesses more on the right side. There is Mild spinal canal stenosis with impingement of the emerging nerve roots. Buckled ligamenta flava and arthropathic facet joints augment effects. An underlying annular fissure is seen. 7. L5-S1: 2.8 mm annular bulge and 21 x 14 x 11 mm Broad-based central and left central and subarticular extrusion with caudal migration indenting the thecal sac, compromising the subarticular recesses more on the left side. There is moderate spinal canal stenosis and mild bilateral neural foraminal stenosis with impingement of the emerging nerve roots. Low signal material is seen entrapping The left S1 nerve root, suggesting postoperative scar tissue. Degenerative retrolisthesis buckled right ligamentum flavum, and arthropathic facet joints augment effects. Contrast-enhanced MRI study is recommended. 8. The reported findings explain the current clinical status. Electronically signed by Ruben Khanna 09-24-2024 03:35 AM Dictated: 09/24/24 0230 Transcribed: Code Status & VTE Plan VTE Prophylaxis Plan VTE Prophylaxis will be ordered: Yes
--- NOTE | 2024-09-24 11:11 | Anesthesiology Consultation ---
Date of Service September 24, 2024 Assessment & Plan (1) Encounter for pre-operative examination: Chart Review Chart Review: Acceptable Risk for Surgery and Patient NOT seen in Pre Admission Testing Consults Requested none History Surgery Operation Date: 09/24/24 10:00 Proposed Procedures p L4-L5 Decompression and Fusion, Spinal Cord Monitoring - Avery Ramos DO Height/Weight Height: 6 ft 2 in Weight: 116.8 kg Allergies Allergy/AdvReac Type Severity Reaction Status Date / Time No Known Allergies Allergy Verified 12/05/22 10:43 Medications Home Medications Medication Instructions Recorded Confirmed Last Taken methylprednisolone 4 mg tablets in 40 mg PO 2XD PRN Pain, Moderate 09/24/24 09/24/24 Unknown a dose pack tramadol 50 mg PO Q4-5H PRN Pain, Moderate 09/24/24 09/24/24 Unknown Active Medications Generic Name Dose Route Start Last Admin Trade Name Freq PRN Reason Stop Dose Admin Bupropion HCl 150 mg 09/24/24 09:00 09/24/24 09:08 Bupropion Sr 150 Mg Tabcr PO 10/24/24 08:59 Not Given BID TYREE Diphenhydramine HCl 25 mg 09/24/24 05:23 09/24/24 05:40 Diphenhydramine 50 Mg/Ml Vial IV 10/24/24 05:22 25 mg Q3H PRN Administration Pain Heparin Sodium (Porcine) 5,000 units 09/24/24 09:00 09/24/24 08:24 Heparin Sod 5,000 Unit/0.5 Ml Vial SQ 10/24/24 08:59 5,000 units Q12 TYREE Administration Hydromorphone HCl 1 mg 09/24/24 05:23 09/24/24 08:36 Hydromorphone Inj 1 Mg/Ml Syringe IV 10/08/24 05:22 1 mg Q3H PRN Administration Moderate Pain (Scale 4, 5, 6) Hydromorphone HCl 1.5 mg 09/24/24 05:23 09/24/24 10:43 Hydromorphone Inj 2 Mg/Ml Syr/Vial IV 10/08/24 05:22 1.5 mg Q3H PRN Administration Severe Pain (Scale 7, 8, 9,10) Dexamethasone 6 mg/ Syringe 1.5 mls @ 1 mls/min 09/24/24 09:00 09/24/24 08:24 IV 10/24/24 08:59 1 mls/min Q8H TYREE Administration Past Medical History Medical History Varicocele Depression History of COVID-19 08/2021 > RESOLVED Heart burn Occasional Past Family History Family History Other No family history of adverse response to anesthesia No significant family history Past Surgical History Surgical History Gynecomastia, male REPAIRED [place] teeth removed History of tonsillectomy and adenoidectomy History of ear surgery LEFT EAR PATCH (REPAIRED HOLE IN EAR) History of myringotomy X 2 Social History Smoking Status: Never smoker Do You Dip or Chew Tobacco: No Hx Alcohol Use: No Alcohol type: beer alcohol intake frequency: a few times a month Hx Substance Use: No substance use type: does not use Physical Exam Vital Signs Last Vital Signs Temp 98.8 F 09/24/24 07:13 Pulse 93 H 09/24/24 09:08 Resp 17 09/24/24 09:08 BP 134/96 09/24/24 09:08 Pulse Ox 99 09/24/24 09:08 O2 Del Method Room Air 09/24/24 10:54 O2 Flow Rate 2 09/24/24 09:08 Testing Laboratory Results 09/24/24 01:54 09/24/24 01:54 Urine Color Yellow 09/24/24 01:08 Urine Appearance Clear (Clear) 09/24/24 01:08 Urine pH 7.0 (4.5-7.5) 09/24/24 01:08 Ur Specific [place] 1.014 (1.000-1.030) 09/24/24 01:08 Urine Protein Negative (Negative) 09/24/24 01:08 Urine Glucose (UA) Negative (Negative) 09/24/24 01:08 Urine Ketones Negative (Negative) 09/24/24 01:08 Urine Nitrite Negative (Negative) 09/24/24 01:08 Ur Leukocyte Esterase Negative (Negative) 09/24/24 01:08
[2024-09-24] MEDS: LACTATED RINGER'S 1,000 ML IV SCH (11:26)
[2024-09-24] MEDS ORDERED: HYDROmorphone INJ 2 MG/ML SYR/VIAL IV PRN (11:53)
[2024-09-24] MEDS ORDERED: ATROPINE SULFATE 0.1 MG/ML 10ML SYR IV PRN (11:53)
[2024-09-24] MEDS ORDERED: fentaNYL citrate PF 100 MCG/2 ML VIAL IV PRN (11:53)
[2024-09-24] MEDS ORDERED: ePHEDrine sulfate 50 MG/ML AMP IV PRN (11:53)
[2024-09-24] MEDS ORDERED: fentaNYL citrate PF 100 MCG/2 ML VIAL ONE ×2 (12:01→12:54)
[2024-09-24] MEDS ORDERED: DEXAMETHASONE SOD INJ 4 MG/ML VIAL ONE (12:01)
[2024-09-24] MEDS ORDERED: GLYCOPYRROLATE 0.2 MG/ML VIAL ONE (12:01)
[2024-09-24] MEDS ORDERED: PROPOFOL IV EMULSION 10 MG/ML 20 ML VIAL IV ONE (12:01)
[2024-09-24] MEDS ORDERED: LIDOCAINE 2% 2 ML VIAL/AMP(20MG/ML) INFIL ONE (12:01)
[2024-09-24] MEDS ORDERED: ROCURONIUM BROMIDE 10 MG/ML 5 ML VIAL IV ONE ×3 (12:01→13:25)
[2024-09-24] MEDS ORDERED: ONDANSETRON INJ 2 MG/ML 2 ML VIAL ONE (12:01)
[2024-09-24] MEDS ORDERED: MIDAZOLAM HCL 1 MG/ML 2ML VIAL ONE (12:01)
[2024-09-24] MEDS: ceFAZolin 2000MG 2,000 MG/15 ML SYR IV ONE (12:14)
[2024-09-24] MEDS: BUPIVACAINE/EPINEPHRINE 0.25% 1:200,000 30 ML VIAL ONE (12:57)
[2024-09-24] MEDS ORDERED: KETAMINE HCL 10MG/ML SYR ONE (13:16)
[2024-09-24] MEDS ORDERED: SUGAMMADEX SODIUM 200 MG/2 ML VIAL IV ONE (13:29)
[2024-09-24] MEDS: ceFAZolin 330 MG/ML 1 GM VIAL ONE (13:54)
[2024-09-24] MEDS: FLOSEAL HEMOSTATIC MATRIX 10ML TOP ONE (13:56)
--- NOTE | 2024-09-24 14:10 | Operative Report ---
Post Operative Report Pre & Post Diagnosis Operation Date: 09/24/24 10:00 Pre-Op Diagnosis: #1 recurrent lumbar disc herniation L4-5 #2 retrolisthesis L4-L5 #3 degenerative disc disease with Modic changes L4-L5 #4 lumbar spinal stenosis Post-Op Diagnosis: Same I identified the patient and participated in the time-out.: Yes Procedure Operation Date: 09/24/24 10:00 Actual Procedures #1 revision decompression with bilateral medial facetectomies and foraminotomies L4-5. #2 posterior spinal fusion L4-5 and #3 placed posterior instrumentation L4-5. #4 interbody fusion L4-5 #5 placement Spira 14 x 26 mm x 2 and L4-5. #6 placement locally harvested morselized autograft posterior gutters. #7 placement infuse collagen sponge combined with Koros in the posterior lateral gutters and os design interbody space. #8 application of versa wrap of the exposed dura. Surgeon Avery Ramos, Staff Nuclear Weapons Officer Dayami Dunlap Estimated Blood Loss 300 Findings Consistent with Post-Op Diagnosis Specimens None Indications This is a 34-year-old male who presents the emergency room last evening with urinary retention severe pain and inability to ambulate. He had progressive neurologic deficit about the left lower extremity is here for emergent decompression and fusion. Description of Procedure Patient was met with identified informed consent obtained. Patient was then taken to the operative suite underwent intubation placed in a prone position on the Brian table atop the Trevon frame. All bony promises well-padded eyes inspected to ensure no external pressure placed upon them. This point the lumbar spine was prepped and draped no sterile fashion. Sharp dissection with the assistance of Bovie cautery from down to and exposing the remaining lamina transverse processes of L4-L5. From a [place] fashion a revision complete laminectomy of L4 was performed including bilateral medial facetectomies and foraminotomies addressing all subarticular stenosis and foraminal disease. This included revision discectomy on the left for fragments had migrated caudally under the traversing L5 nerve root. Pedicle screws then placed in L4-5 bilaterally with assistance of fluoroscopy and appropriate size colby placed. By way of transforaminal approach on the left a discectomy of L4-L5 was performed endplates guided to subcortical mean bone and a 14 x 26 mm Spira cage filled with os design bone graft tapped in position. Then proceeded to the right transforaminal region at L4-5. Again discectomy performed. Endplates guided to subcortical bleeding bone and a second 14 x 26 mm spiral cage filled with os design bone graft tapped in position. The rods were then compressed locked into final position bilaterally. The transverse processes of L 4 L5 burred to subcortical bleeding bone. Infuse collagen sponge combined with Koros local autograft placed in the posterior lateral gutters. 15 round FELIPE drain inserted. Versa wrap placed over the exposed dura. Incision was then closed with 1 Vicryl the fascia 2-0 Vicryl subcutaneously and 4 Monocryl for final skin closure. Steri-Strips sterile dressing placed. Patient waken taken to PACU stable condition. Please note spinal cord monitoring was utilized at the procedure no changes noted. Lastly Dayami Dunlap was present throughout the entire procedure and found the patient positioning complex portions of the surgery and final skin closure. I attest to the content of the Intraoperative Record and any orders documented therein. Any exceptions are noted below.
--- NOTE | 2024-09-24 14:40 | Fluoroscopy Report ---
FL lumbar spine 2-3V CLINICAL HISTORY: L4-L5 decompression and fusion. COMPARISON STUDY: Lumbar spine MRI September 24, 2024. FLUOROSCOPY TIME: 20 seconds. Ka,r: 18.87 mGy FLUOROSCOPIC IMAGES: 2 FINDINGS: Fluoroscopy was provided during L4-5 discectomy with interbody spacer placement. Posterior decompression with bilateral pedicle screws at the L4 and L5 levels is noted. Hardware is intact. No unexpected radiopaque foreign bodies. IMPRESSION: Fluoroscopy during L4-L5 decompression and fusion. ACT 112: Negative or not required by law. Electronically signed by: Eugene Zuniga M.D. 09/24/2024 2:38 PM
[2024-09-24] MEDS ORDERED: DO NOT ADMINISTER FLU VACCINE PRN (15:17)
[2024-09-24] MEDS ORDERED: diphenhydrAMINE Capsule 25 MG CAP PO PRN (15:17)
[2024-09-24] MEDS ORDERED: bisacodyL 10 MG SUPP PR PRN (15:17)
[2024-09-24] MEDS ORDERED: SOD PHOSPHATE/SOD BIPHOSPHATE ENEMA 132 ML BTL PR PRN (15:17)
[2024-09-24] MEDS ORDERED: MAGNESIUM HYDROXIDE SUSP 30 ML UDC PO PRN (15:17)
[2024-09-24] MEDS ORDERED: ACETAMINOPHEN 1,000 MG/100 ML VIAL IV PRN (15:17)
[2024-09-24] MEDS ORDERED: DO NOT ADMINISTER PNEUMOCOCCAL VACCINE PRN (15:17)
[2024-09-24] MEDS ORDERED: METOCLOPRAMIDE HCL INJ 5 MG/ML 2 ML VIAL IV PRN (15:17)
[2024-09-24] MEDS ORDERED: LORazepam 2 MG/1 ML VIAL IV PRN (15:17)
[2024-09-24] MEDS ORDERED: traMADol HCL 50 MG TABLET PO PRN (15:17)
[2024-09-24] MEDS ORDERED: ALUMINUM/MAGNESIUM SUSP 30 ML UDC PO PRN (15:17)
[2024-09-24] MEDS ORDERED: hydrOXYzine HCl 25 MG TAB PO PRN (15:17)
[2024-09-24] MEDS ORDERED: HYDROmorphone INJ 0.5 MG/0.5 ML SYR IV PRN (15:17)
[2024-09-24] MEDS ORDERED: PROMETHAZINE 12.5 MG/50.5 ML BAG IV PRN (15:17)
[2024-09-24] MEDS ORDERED: FAMOTIDINE 20 MG TAB PO PRN (15:17)
[2024-09-24] MEDS ORDERED: ONDANSETRON 4 MG OD TAB PO PRN (15:17)
--- NOTE | 2024-09-24 15:30 | Anesthesiology Progress Note ---
Date of Service September 24, 2024 Anesthesia Post Procedure Vital Signs Vital Signs: Temp Pulse Pulse Pulse Resp BP BP 09/24/24 15:18 98.2 F 96 H 18 127/85 09/24/24 15:01 97.7 F 97 H 14 137/86 09/24/24 14:50 95 H 12 137/84 09/24/24 14:40 86 12 123/74 09/24/24 14:30 90 12 122/76 09/24/24 14:22 96.8 F L 87 12 138/83 09/24/24 11:11 98.6 F 97 H 18 146/86 H 09/24/24 10:54 09/24/24 09:08 93 H 17 134/96 09/24/24 07:13 98.8 F 85 18 143/94 H 09/24/24 06:54 87 09/24/24 06:05 76 15 127/71 09/24/24 04:28 79 12 139/79 09/24/24 04:27 89 09/24/24 02:30 76 13 09/24/24 00:59 98 H 09/24/24 00:43 85 12 142/91 H 09/24/24 00:31 97.7 F 98 H 22 167/112 H Pulse Ox O2 Del Method O2 Flow Rate 09/24/24 15:18 95 Room Air 09/24/24 15:01 92 Room Air 0 09/24/24 14:50 92 Room Air 0 09/24/24 14:40 97 Room Air 0 09/24/24 14:30 95 Oxymask 8 09/24/24 14:22 96 Oxymask 8 09/24/24 11:11 96 Room Air 09/24/24 10:54 Room Air 09/24/24 09:08 99 Nasal Cannula 2 09/24/24 07:13 97 Room Air 09/24/24 06:54 09/24/24 06:05 92 09/24/24 04:28 93 09/24/24 04:27 09/24/24 02:30 96 09/24/24 00:59 09/24/24 00:43 96 09/24/24 00:31 98 Room Air Pain Intensity Bilateral Back: Pain Intensity: 8 Transfer of Care Handoff Completed per policy Notes Mental Status: alert / awake / arousable and participated in evaluation Patient Amnestic to Procedure: Yes Nausea / Vomiting: adequately controlled Pain: adequately controlled Airway Patency, RR, SpO2: stable & adequate BP & HR: stable & adequate Hydration State: stable & adequate Anesthetic Complications: no major complications apparent and Pt Satisfied with anesthetic care
[2024-09-24] MEDS: oxyCODONE HCL IR 5 MG TAB (IMMEDIATE RELEASE) PO PRN (16:51)
[2024-09-24] MEDS: KETOROLAC 30 MG/ML VIAL IV PRN (20:03)
[2024-09-24] MEDS: DOCUSATE SODIUM/SENNA 50/8.6MG TAB PO SCH (20:04)
[2024-09-24] MEDS: ceFAZolin 2000MG 2,000 MG/15 ML SYR IV SCH (20:04)
[2024-09-24] MEDS ORDERED: NORTRIPTYLINE HCL 10 MG CAP PO SCH (21:00)
[2024-09-24] MEDS: LORazepam 0.5 MG TAB PO PRN (21:17)
[2024-09-25] MEDS: POLYETHYLENE (MIRALAX) 17 GM PACK PO SCH (05:10)
[2024-09-25 07:10] LABS: Basophils # (auto) 0.02 K/uL (0.00-0.20); Basophils % (auto) 0.2 %; Eosinophils # (auto) 0.03 K/uL (0.00-0.50); Eosinophils % (auto) 0.2 %; Hematocrit (blood only) 39.4 % (42.0-52.0); Hemoglobin 13.9 g/dl (14.0-18.0); Immature Granulocytes # (auto) 0.05 K/uL (0.01-0.20); Immature Granulocytes % (auto) 0.4 %; Lymphocytes # (auto) 1.48 K/uL (1.20-3.40); Lymphocytes % (auto) 11.7 %; Mean Corpuscular Hemoglobin 30.2 pg (25.0-34.0); Mean Corpuscular Hgb Conc 35.3 g/dL (32.0-36.0); Mean Corpuscular Volume 85.7 fL (80.0-100.0); Mean Platelet Volume 11.6 fL (9.4-12.4); Monocytes # (auto) 1.55 K/uL (0.11-0.59); Monocytes % (auto) 12.2 %; Neutrophils # (auto) 9.54 K/uL (1.40-6.50); Neutrophils % (auto) 75.3 %; Platelet Count 147 K/uL (130-400); RDW Standard Deviation 36.9 fL (36.4-46.3); White Blood Count 12.67 K/ul (4.8-10.8)
[2024-09-25 07:26] LABS: BUN Creatinine Ratio 17.4 (10-20); Calcium 8.7 mg/dl (8.6-10.3); Creatinine Clr Calc Pharmacy 129.7 ml/min; Phosphorus 4.4 mg/dl (2.5-4.9); Potassium 4.1 mmol/L (3.5-5.1)
[2024-09-25] MEDS: dexAMETHasone 6 MG in SYRINGE 0 ML IV SCH (08:51)
[2024-09-25] MEDS ORDERED: LIDOCAINE 5% 1 PATCH TD SCH (09:00)
--- NOTE | 2024-09-25 10:09 | Orthopedic Progress Note ---
Date of Service September 25, 2024 Assessment & Plan (1) Lumbar disc herniation with radiculopathy: Plan: At this time we will continue physical therapy monitor his FELIPE operatively discharge home next few days. Admission and Anticipated Discharge Date Admission Date: September 24, 2024 Subjective Patient's back pain is controlled leg symptoms markedly improved. Physical Exam Physical Exam: Patient is good strength testing. Appears comfortable. Results & Data Vital Signs (Past 12 Hours) Vital Signs Temp Pulse Resp BP Pulse Ox O2 Del Method 09/25/24 07:05 36.9 C 87 18 121/73 95 Room Air 09/25/24 02:49 36.6 C 79 16 112/68 96 Room Air 09/24/24 22:59 37.0 C 93 H 17 147/67 H 97 Room Air
--- NOTE | 2024-09-25 10:20 | Hospitalist Progress Note ---
Date of Service September 25, 2024 Assessment & Plan (1) Lumbar disc herniation with radiculopathy: Plan: The patient is a 34-year-old male with prior medical history that of chronic low back pain, and history of microdiscectomy surgery.The patient presents to the emergency department with history of significant back pain Diagnosed with lumbar disc herniation with radiculopathy Taken to the OR He is now s/p decompression and spinal fusion surgery His pain and numbness better this morning FELIPE drain in situ Appreciate Ortho spine PT/OT (2) Acute urinary retention: Plan: Secondary to disc herniation Now resolved following mead insertion Follow up with urology outpatient for mead mgt (3) Back pain: (4) History of microdiscectomy: Plan Continue to monitor in the hospital Awaiting PT eval may need rehab Admission and Anticipated Discharge Date Admission Date: September 24, 2024 Subjective patient seen and examined, stable post surgery Review of Systems Review of Systems: All systems reviewed are negative, apart from the ones contained in the history. Physical Exam Physical Exam: The patient is awake, alert and oriented 3, well developed and well nourished, normocephalic and atraumatic, lying in bed and in no acute distress. HEENT--PERRL, EOMI, mucous membranes and oropharynx mildly dry Neck--supple. No JVD. No bruits. Thyroid normal, trachea midline, no adenopathy. Heart--normal S1 and S2. No murmurs, rubs or gallops. Lungs--clear bilaterally, no respiratory distress, no accessory muscle use. Abdomen--normal bowel sounds and soft. Extremities--no cyanosis or clubbing. No edema. Dermatologic--normal skin turgor, normal color, no abnormal lymph nodes, no rash. Neurologic--cranial nerves II through XII grossly intact. Rheumatologic--normal range of motion. Psychiatric--normal affect. Results & Data Results & Data Vital Signs (Past 12 Hours) Vital Signs Temp Pulse Resp BP Pulse Ox O2 Del Method 09/25/24 07:05 98.4 F 87 18 121/73 95 Room Air 09/25/24 02:49 97.8 F 79 16 112/68 96 Room Air 09/24/24 22:59 98.6 F 93 H 17 147/67 H 97 Room Air PG Care Time/CCT Total # of Minutes Spent Total Time Spent with Patient: Total time spent is greater than 50% in coordination of care (as documented) at patient's floor/unit and/or counseling patient: Coding Level of Care Code 12639 SUB INP/OBS CARE 2/35MIN Diagnoses Lumbar disc herniation with radiculopathy M51.16 Acute urinary retention R33.8 Back pain M54.9 History of microdiscectomy Z98.890 Time Spent (min) 35
[2024-09-25] MEDS: ACETAMINOPHEN 500 MG TAB PO PRN (16:54)
[2024-09-25] MEDS: HYDROmorphone INJ 1 MG/ML SYRINGE IV PRN (20:38)
[2024-09-26] MEDS: ACETAMINOPHEN 325 MG TAB PO PRN (03:54)
--- NOTE | 2024-09-26 08:48 | Discharge Summary ---
Date of Service September 26, 2024 Admission HPI Per Admitting Provider This is a 34-year-old gentleman who presented to the ER last evening with complaints of severe left lower extremity pain and urinary retention. He has been dealing with this issue for about 6 months or so. He underwent physical therapy as well as chiropractic treatments and most recently have massage therapy this week. Over the past 8 weeks symptoms have been progressively worsening. Last evening he and his were out to dinner and pain became severe enough to the point that he presented to the emergency room. Over the past couple weeks he seen his established surgeon Dr. Renteria in [place] who has performed her prior L4-5 in the left microdiscectomy in 2019 with relief of his symptoms. He is referred to pain management from Dr. Renteria. He has a scheduled lumbar injection tomorrow in [place]. Denies perineum numbness. Denies right leg pain. Kinsey catheter was placed in the ER due to his urinary retention. Urology was also consulted. Over the past several weeks he has trialed oral prednisone, tramadol, NSAIDs without relief. Principal Diagnosis Recurrent lumbar disc radiation with radiculopathy Discharge Data Allergies Allergy/AdvReac Type Severity Reaction Status Date / Time No Known Allergies Allergy Verified 12/05/22 10:43 Consultations 09/24/24 04:59 ED Decision to Admit Stat 09/24/24 05:30 Consult Orthopedic Spine Surgery Routine 09/24/24 05:31 Consult Urology Routine Procedures Performed Operation Date: 09/24/24 10:00 Actual Procedures p L4-L5 Decompression and Fusion, Spinal Cord Monitoring(Not Applicable) - Avery Ramos DO Ordered Studies 09/24/24 01:23 MRI Lumbar Spine [MR lumbar spine wo con] Stat 09/24/24 12:00 FL lumbar spine 2-3V Routine Hospital Course (1) Lumbar disc herniation with radiculopathy: Patient was admitted with recurrent lumbar discrimination progressive neurologic deficit urinary retention and incapacitating pain requiring IV narcotics. Subsequently underwent urgent decompression fusion tolerated as well as taken orthopedic for postoperative. Postop he progressed appropriately. Marked improvement in function and strength. FELIPE drain decreasing. Subsidy discharged home. Discharge orders instructions from the chart for further review. Total Time Total Time Spent Total Time Spent (In Minutes): 20 minutes Discharge Plan Discharge Items Patient Disposition: Home - Self-Care Reason For Visit: INTRACTABLE LBP, HX OF BACK SURGERY Discharge Diagnosis: Recurrent lumbar discrimination with radiculopathy Activity: As commented below Non-emergency contact: Primary Care Provider Call non-emergency contact if: you have any medication questions Follow-up/Referrals: Bre Ospina MD [Primary Care Provider] - Diet: Regular Addtl Attending Provider Instructions: ACTIVITY RECOMMENDATIONS: SELF CARE INSTRUCTIONS AFTER THORACIC/LUMBAR FUSIONS 1. You may walk to your tolerance. It is good exercise for your legs and back. Expect some back and intermittent leg aches and pains. 2. You may perform "counter-top" level activities (make a sandwich, margret with a project, etc.). 3. No bending or lifting of more than 10 pounds or back twisting of any nature (roll like a log when turning in bed). 4. You may ride in a car for 20-30 minutes at a time. No driving until after your first visit with your doctor. 5. Frequent changes of position and restricting sitting to 30 minutes at a time will help limit the amount of back spasms and stiffness you may experience. 6. You may discontinue the use of ambulatory aids (cane, crutches, etc.) once your strength and confidence allow. 7. You may computer training specialist the shower and let water strike your incision when you arrive home at least once daily. Do not take a tub bath, sit in a hot tub or go into a swimming pool until after your first recheck in the office. 8. You may resume previous diet. SPECIAL CARE INSTRUCTIONS: VERY IMPORTANT TO READ AND REVIEW A. Your surgical incision has been closed with a cosmetic suture under the skin that will dissolve in about 6 weeks. In 14 days, you can use a pair of clean scissors and cut the suture that is left outside of the skin at the ends of your incision. 1. The small skin tapes can be removed 7 days after surgery if they have not fallen off by that point. 2. You may keep the wound open to air as much as possible to promote healing after post-op day number 5 unless told otherwise by your doctor. 3. If you think the wound looks like it is becoming infected (redness or worsening drainage) and/or you are experiencing fever, chill or worsening back pain and muscle spasms, contact the office so that we may evaluate you as soon as possible. B. Complications are uncommon, but please contact us if you have any signs or symptoms of: 1. wound infection (fever higher than 102.5 degrees F, redness, separation of wound, drainage, or increasing pain from the incision) 2. blood clots in legs (pain, swelling, redness and warmth in legs) 3. urinary tract infection (fever higher than 102.5 degrees F, burning upon urination or increased frequency of urination) 4. nerve problems (inability to walk on your toes or heels, numbness, loss of bowel or bladder control) 5. any other symptoms that concern you C. Please call the office at if you have any concerns or questions about your operation or recovery. D. No smoking! Smoking drastically decreases the chance of a solid fusion. E. Do not take any anti-inflammatory medications (Indocin, Advil, Motrin, Aspirin, Naprosyn, etc.) as these may inhibit the chance of a solid fusion. Tylenol is okay to take for pain. MANAGING PAIN AFTER SPINAL SURGERY 1. Narcotic medication is intended for short-term use and will be provided for surgical pain. Surgical pain usually lasts for a period of 4-6 weeks. Narcotic medication includes Percocet, Vicodin, Darvocet, Tylenol #3 or Lortab. 2. Longer-term pain is more appropriately treated with non-narcotic medication such as Tylenol ES. 3. Muscle spasm is not appropriately treated with narcotics. Muscle relaxers such as Soma, Flexeril or Skelaxin can be used along with Tylenol ES. 4. Remember that we all live with some "aches and pains". This is not unusual or uncommon after an injury or as we get older. a. Back pain is expected and may include muscle spasms for 4 to 6 weeks after surgery. The pain should gradually improve. If the pain worsens for no apparent reason, please contact the office. b. Intermittent leg pain may also be experienced and should not be concerned about unless it worsens for no apparent reason. If so, please contact the office. 5. We will provide appropriate medication within the normal guidelines of their prescribed use. We will also be very cautious and aware of potential abuse and extended duration of patients' medication needs. a. Pain medications are for your comfort and to assist with sleep and rest so that the tissue can heal. They are not provided in order to return to normal activity and should not be used through the day. To do so or worsening pain at night can result from ongoing tissue damage and development of tolerance to the prescribed medicine. 6. Please allow 2-3 days to process refills. Prescriptions will not be mailed but must be picked up at the office. FOLLOW UP VISIT: Keep your scheduled follow-up appointment. Any questions, please call the office at . Pending Studies at Discharge: No Stand-Alone Forms: My [facility], Smoking Cessation Medications and DC Order Prescriptions: New oxycodone 5 mg tablet 5 mg PO Q6H PRN (Reason: pain) Qty: 30 0RF Continued tramadol 50 mg 50 mg PO Q4-5H PRN (Reason: Pain, Moderate) Discontinued methylprednisolone 4 mg tablets,dose pack 40 mg PO 2XD PRN (Reason: Pain, Moderate) Discharge Orders: Discharge Order (Routine); Ordered 09/26/24 Ordered By: Avery aRmos Admission Data Admit Date/Time: 09/24/24 13:14 Attending Provider: Yris Jo Admit Provider: Jose Tyson Primary Care Provider: Bre Ospina Other Providers: Thom Floyd; Jose Tyson; Avery Ramos; Pierre Cowan
[2024-09-26 09:26] LABS: Basophils # (auto) 0.04 K/uL (0.00-0.20); Basophils % (auto) 0.4 %; Eosinophils % (auto) 2.2 %; Hematocrit (blood only) 38.5 % (42.0-52.0); Hemoglobin 13.3 g/dl (14.0-18.0); Immature Granulocytes # (auto) 0.02 K/uL (0.01-0.20); Immature Granulocytes % (auto) 0.2 %; Lymphocytes # (auto) 1.91 K/uL (1.20-3.40); Lymphocytes % (auto) 20.7 %; Mean Corpuscular Hemoglobin 30.1 pg (25.0-34.0); Mean Corpuscular Hgb Conc 34.5 g/dL (32.0-36.0); Mean Corpuscular Volume 87.1 fL (80.0-100.0); Mean Platelet Volume 12.8 fL (9.4-12.4); Neutrophils # (auto) 5.85 K/uL (1.40-6.50); Neutrophils % (auto) 63.5 %; Platelet Count 148 K/uL (130-400); RDW Coefficient of Variation 11.9 % (11.5-14.5); RDW Standard Deviation 38.4 fL (36.4-46.3); Red Blood Count 4.42 M/uL (4.70-6.10); White Blood Count 9.22 K/ul (4.8-10.8)
[2024-09-26 09:52] LABS: Albumin Level 4.3 gm/dl (3.4-5.0); BUN Creatinine Ratio 18.5 (10-20); Creatinine Clr Calc Pharmacy 174.6 ml/min; Phosphorus 2.8 mg/dl (2.5-4.9); Potassium 3.4 mmol/L (3.5-5.1)
[2024-09-26 10:31] VITALS: BP 114/74; PULSE 86; RESP 20; TEMP 98.4; O2SAT 98
== END 2024-09-26 10:42 | disposition home or self-care (01) | DRG 402 ==
LOC: SUATTDRO → EDINP 00:28 → ED 00:28 → 3N 10:15 → SUATTDRO 13:14